=== PATIENT | female | born 1980 | race Caucasian/White ===

== ENCOUNTER → 2017-07-30 | Outpatient (CLI) | payer OTHER ==
[~2017-07-30] MED LIST: E-Z-GAS II EFFERVESCENT PACKET (SODIUM BICARB./CITRIC ACID/SIMETHICONE) As Ordered; ISOVUE-370 76% 100ML VIAL (Q9967) As Ordered
== END ==
LOC: M RADPRO 11:48
DX: N97.9 Female infertility, unspecified (principal)
CPT/HCPCS: 58340

== ENCOUNTER → 2018-01-14 | Outpatient (REF) | payer OTHER | LOC: M SFHCLERA 12:58 | DX: R30.0 Dysuria (principal) ==

== ENCOUNTER 2018-07-10 18:30 | Emergency (ER) | payer OTHER ==
[~2018-07-10] VITALS: Ht 162.6 cm; Wt 59.1 kg
[2018-07-10] MEDS ORDERED: PROG100C PO (18:36)
[2018-07-10] MEDS ORDERED: ASPI81TA85 PO (18:36)
[2018-07-10] MEDS ORDERED: PRENTAB55 PO (18:36)
[2018-07-10] MEDS ORDERED: CRAN400C PO (18:36)
[2018-07-10] MEDS ORDERED: VITA200016 PO (18:36)
[2018-07-10] MEDS ORDERED: MACR100C43 PO (19:49)
[2018-07-10] MEDS ORDERED: PYRI1TAB5 PO (19:49)
[2018-07-10] MEDS ORDERED: NITROFURANTOIN (MACROBID) 100 MG CAP PO ONE (20:00)
[2018-07-10 20:01] VITALS: BP 115/80
== END 2018-07-10 20:06 | disposition home or self-care (01) ==
LOC: M ED 18:30
DX: N39.0 Urinary tract infection, site not specified (principal); R30.0 Dysuria; R35.0 Frequency of micturition

== ENCOUNTER → 2018-08-19 | Outpatient (CLI) | payer OTHER ==
[~2018-08-19] MED LIST changes: +ASPI81TA85 PO; +CRAN400C PO; -E-Z-GAS II EFFERVESCENT PACKET (SODIUM BICARB./CITRIC ACID/SIMETHICONE) As Ordered; -ISOVUE-370 76% 100ML VIAL (Q9967) As Ordered; +MACR100C43 PO; +PRENTAB55 PO; +PROG100C PO; +PYRI1TAB5 PO; +VITA200016 PO
[2018-08-19 09:11] LABS: THYROID STIMULATING HORMONE 1.83 uIU/ML (0.358-3.740)
[2018-08-19 09:45] LABS: PROGESTERONE 25.11 NG/ML
[2018-08-19 10:18] LABS: ESTRADIOL 219.6 PG/ML
== END ==
LOC: M LAB 08:05
PROVIDERS: ATTEND Obstetrics & Gynecology Reproductive Endocrinology
DX: E28.9 Ovarian dysfunction, unspecified (principal)

== ENCOUNTER → 2018-08-26 | Outpatient (CLI) | payer OTHER ==
[2018-08-26 10:54] LABS: PROGESTERONE 4.45 NG/ML
== END ==
LOC: M LAB 09:51
PROVIDERS: ATTEND Obstetrics & Gynecology Reproductive Endocrinology
DX: Z32.00 Encounter for pregnancy test, result unknown (principal)

== ENCOUNTER → 2018-10-24 | Outpatient (CLI) | payer OTHER ==
[2018-10-24 11:38] LABS: HCG, SERUM QUANTITATIVE < 1.0 MIU/ML
[2018-10-24 11:41] LABS: LUTEINIZING HORMONE 3.8 mIU/mL; PROGESTERONE 0.39 NG/ML
--- NOTE | 2018-10-24 11:41 | REP ---
TRANSVAGINAL PELVIC ULTRASOUND, FOLLICLE STUDY: Real-time sonographic evaluation of pelvis performed utilizing transvaginal technique. Uterus measures 7.7 x 3.0 x 4.3 cm. Endometrial thickness is 2 mm. A right-sided fibroid measures 8 x 5 x 6 mm. Nabothian cyst is seen in the region of the cervix. Right ovary measures 4.1 x 2.3 x 3.3 cm with no torsion. Two dominant follicles are seen measuring 10 x 8 and 11 x 6 mm. Multiple other subcentimeter follicles are seen in the right ovary. Left ovary measures 3.3 x 2.0 x 3.4 cm with no torsion. Two dominant follicles are seen measuring 10 x 6 and 10 x 7 mm. Multiple other subcentimeter follicles are seen. Electronically Signed by Lukas Paulson MD 10/24/2018 12:43 P
[2018-10-24 11:42] LABS: ESTRADIOL 40.9 PG/ML; FOLLICLE STIMULATING HORMONE 6.9 mIU/mL
== END ==
LOC: M RAD 10:32
PROVIDERS: ATTEND Obstetrics & Gynecology Reproductive Endocrinology
DX: E28.9 Ovarian dysfunction, unspecified (principal)

== ENCOUNTER → 2018-10-30 | Outpatient (CLI) | payer OTHER ==
[2018-10-30 14:09] LABS: HCG, SERUM QUANTITATIVE < 1.0 MIU/ML; LUTEINIZING HORMONE 3.1 mIU/mL; PROGESTERONE 0.22 NG/ML; THYROID STIMULATING HORMONE 0.709 uIU/ML (0.358-3.740)
[2018-10-30 14:10] LABS: FOLLICLE STIMULATING HORMONE 6.2 mIU/mL
--- NOTE | 2018-10-30 15:16 | REP ---
Clinical: Infertility. Technique: Transvaginal pelvic ultrasound. Findings: Normal anteverted uterus measures 8.1 x 3.4 x 4.9 cm. Endometrial complex measures 7 mm. Trace amount of endocervical fluid is identified. Right anterior intramural fibroid measures 9 mm maximal diameter; right posterior submucosal fibroid measures 1.8 cm maximal diameter. Right ovary measures 3.5 x 2.7 x 3.7 cm with five follicles measuring between 10.0 and 19.3 mm as well as five sub centimeter follicles measuring between 3.2 and 8.2 mm. Left ovary measures 4.3 x 2.1 x 3.6 cm with three follicles measuring between 11.5 and 19.0 mm as well as seven sub centimeter follicles measuring between 4.8 and 7.6 mm. Impression: Follicular study as above. Electronically Signed by Edmar Nava MD 10/30/2018 03:07 P
== END ==
LOC: M RAD 13:06
PROVIDERS: ATTEND Obstetrics & Gynecology Reproductive Endocrinology
DX: E28.9 Ovarian dysfunction, unspecified (principal)

== ENCOUNTER → 2018-11-01 | Outpatient (CLI) | payer OTHER ==
[~2018-11-01] MED LIST changes: +ENDO100S; +ESTR2TAB2; +LOVE1INJ SC; +PREN1TAB14; -PROG100C PO; +PROG1CAP8 PO; +PROG50IN5; +TACR0.5C3
--- NOTE | 2018-11-01 08:22 | REP ---
Transvaginal pelvic sonography: History: Infertility study. Ovarian follicle assessment. Sonographic findings: Overall uterine dimensions are 6.6 x 4.6 x 3.3 cm and endometrial echo is 0.27 cm thick. There are two identifiable myometrial fibroids including a posterior fibroid measuring 1.6 and an anterior fibroid measuring 0.9 cm in greatest diameter. The overall dimensions of the right ovary today are 3.9 x 2.1 x 2.6 cm. There are four follicles over a centimeter in the right ovary measured as follows: 2.2 x 1.6, 1.7 x 1.3, 1.0 x 0.8, and 1.3 x 0.9 cm. In addition, the right ovary contains seven follicles ranging in size from 0.2-0.7 cm. The left ovary measurements are 3.2 x 2.4 x 3.6 cm. There are three follicles over a centimeter in the left ovary measured as follows: 1.2 x 0.8, 2.0 x 1.6, and 2.3 x 1.7 cm. In addition, the left ovary contains 13 follicles ranging in size from 0.2-0.9 cm. Impression: Ovarian follicle assessment as above. Electronically Signed by Robby Mckeon MD 11/01/2018 08:14 A
[2018-11-01 12:22] LABS: ESTRADIOL 482.7 PG/ML; LUTEINIZING HORMONE 1.9 mIU/mL; PROGESTERONE 0.23 NG/ML
== END ==
LOC: M RAD 07:30
PROVIDERS: ATTEND Obstetrics & Gynecology Reproductive Endocrinology
DX: E28.9 Ovarian dysfunction, unspecified (principal); D25.9 Leiomyoma of uterus, unspecified

== ENCOUNTER 2018-11-17 15:30 | Emergency (ER) | payer OTHER ==
[~2018-11-17] VITALS: Ht 162.6 cm; Wt 61.4 kg
[~2018-11-17 15:30] MED LIST changes: -ENDO100S; -ESTR2TAB2; -LOVE1INJ SC; -PREN1TAB14; +PROG100C PO; -PROG1CAP8 PO; -PROG50IN5; -TACR0.5C3
[2018-11-17] MEDS ORDERED: PREN1TAB14 (15:40)
[2018-11-17] MEDS ORDERED: PROG50IN5 (15:40)
[2018-11-17] MEDS ORDERED: ENDO100S (15:40)
[2018-11-17] MEDS ORDERED: LOVE1INJ SC (15:40)
[2018-11-17] MEDS ORDERED: ESTR2TAB2 (15:40)
[2018-11-17] MEDS ORDERED: TACR0.5C3 (15:40)
[2018-11-17 17:06] VITALS: BP 131/79
== END 2018-11-17 17:07 | disposition home or self-care (01) ==
LOC: M ED 15:30
DX: R30.0 Dysuria (principal); Z32.01 Encounter for pregnancy test, result positive; Z79.82 Long term (current) use of aspirin; Z79.890 Hormone replacement therapy; Z79.899 Other long term (current) drug therapy

== ENCOUNTER → 2018-11-18 | Outpatient (CLI) | payer OTHER ==
[~2018-11-18] MED LIST changes: +ENDO100S; +ESTR2TAB2; +LOVE1INJ SC; +PREN1TAB14; +PROG50IN5; +TACR0.5C3
[2018-11-18 10:15] LABS: PROGESTERONE 127.48 NG/ML
== END ==
LOC: M LAB 08:00
PROVIDERS: ATTEND Obstetrics & Gynecology Reproductive Endocrinology
DX: E28.9 Ovarian dysfunction, unspecified (principal)

== ENCOUNTER → 2018-11-20 | Outpatient (CLI) | payer OTHER ==
[2018-11-20 08:56] LABS: THYROID STIMULATING HORMONE 1.13 uIU/ML (0.358-3.740)
[2018-11-20 10:57] LABS: ESTRADIOL 1765.3 PG/ML
[2018-11-20 11:20] LABS: PROGESTERONE 87.56 NG/ML
== END ==
LOC: M LAB 07:45
PROVIDERS: ATTEND Obstetrics & Gynecology Reproductive Endocrinology
DX: O09.00 Supervision of pregnancy with history of infertility, unspecified trimester (principal); Z3A.00 Weeks of gestation of pregnancy not specified

== ENCOUNTER → 2018-11-27 | Outpatient (CLI) | payer OTHER ==
[2018-11-27 08:50] LABS: THYROID STIMULATING HORMONE 1.58 uIU/ML (0.358-3.740)
--- NOTE | 2018-11-27 09:24 | REP ---
Clinical: Positive test. History of infertility. Technique: Transabdominal and transvaginal first trimester obstetrical ultrasound with color evaluation. Findings: Anteverted uterus measures 9.1 x 4.5 x 5.8 cm and includes posterior fibroid measuring 2.0 x 1.1 x 1.9 cm and anterior right fibroid measuring 1.2 x 1.2 x 1.0 cm. A gestational sac with yolk sac is identified. Mean sac diameter of 7.7 mm corresponds to 5 weeks 4 days gestational age. A small hypoechoic area adjacent to the gestational sac measuring 15 x 3 x 11 mm may represent small subchorionic hemorrhage. Bilateral ovaries are normal in vascularity without evidence for torsion. Right ovary measures 4.7 x 3.7 x 4.6 cm (RI 0.62) and includes 3.2 cm simple cyst and 2.2 cm complex cyst. Left ovary measures 4.1 x 2.5 x 4.2 cm (RI 0.61) and includes 1.4 cm complex cyst and 2.7 cm complex cyst. Small amount of free fluid noted in the pelvis. Impression: 1. Uterus includes two fibroids as described above. 2. Intrauterine gestational sac with yolk sac but no pole identified. Differential diagnosis includes early , blighted ovum, and less likely ectopic cannot be excluded. Correlation and follow-up with serial HCG levels and reevaluation by ultrasound may be warranted. 3. A small subchorionic hemorrhage adjacent to the gestational sac cannot be excluded. 4. Ovaries demonstrate bilateral simple and complex cysts without evidence for torsion. Electronically Signed by Edmar Nava MD 11/27/2018 09:16 A
[2018-11-27 10:25] LABS: ESTRADIOL 929.3 PG/ML
[2018-11-27 11:03] LABS: PROGESTERONE 56.69 NG/ML
== END ==
LOC: M RAD 07:37
PROVIDERS: ATTEND Obstetrics & Gynecology Reproductive Endocrinology
DX: N83.201 Unspecified ovarian cyst, right side (principal); N83.202 Unspecified ovarian cyst, left side

== ENCOUNTER → 2018-12-04 | Outpatient (CLI) | payer OTHER ==
[~2018-12-04] MED LIST changes: -PROG100C PO; +PROG1CAP8 PO
--- NOTE | 2018-12-04 08:28 | REP ---
Clinical: Dating viability. Technique: Transabdominal first trimester obstetrical channel with color Doppler evaluation. Findings: Single live intrauterine is appreciated. Gestational sac with yolk sac and pole noted. CRL of 3 mm corresponds to 5-week 6 days gestational age with estimated date of delivery 07/31/2019. heart rate equals 109 beats per minute. A small subchorionic hemorrhage is appreciated to the left of the gestational sac measuring 18 x 10 x 21 mm. Anterior intramural fibroid cannot be excluded measuring approximately 12 x 10 x 14 mm. The right ovary measures 5.2 x 3.6 x 4.4 cm and includes 3.5 x 3.3 x 3.5 cm cyst, 1.8 x 1.5 x 1.7 cm cyst. The left ovary measures 5.0 x 3.0 x 3.3 cm and includes 2.4 x 2.3 x 2.0 cm complex hemorrhagic cyst and 8 x 17 x 11 mm simple cyst. Impression: 1. Single live early intrauterine at 5 weeks 6 days gestational age. Complete anatomical assessment should be performed at 19-20 weeks. Small subchorionic hemorrhage identified. 2. Anterior intramural fibroid suspected measuring 1.2 x 1.0 x 1.4 cm. 3. Ovaries include multiple simple/complex cysts. Electronically Signed by Edmar Nava MD 12/04/2018 08:19 A
[2018-12-04 08:43] LABS: THYROID STIMULATING HORMONE 1.4 uIU/ML (0.358-3.740)
[2018-12-04 09:52] LABS: ESTRADIOL 2445.3 PG/ML
[2018-12-04 12:34] LABS: PROGESTERONE 75.6 NG/ML
== END ==
LOC: M RAD 07:09
PROVIDERS: ATTEND Obstetrics & Gynecology Reproductive Endocrinology
DX: Z32.01 Encounter for pregnancy test, result positive (principal); Z3A.01 Less than 8 weeks gestation of pregnancy

== ENCOUNTER → 2019-02-16 | Outpatient (REF) | payer OTHER ==
[2019-02-16 22:43] LABS: CHLAMYDIA DNA AMPLIFICATION NEGATIVE (NEGATIVE); GC DNA AMPLIFICATION NEGATIVE (NEGATIVE)
== END ==
LOC: EDBD → MERGE 13:32 → M SFHCLERA 13:32
PROVIDERS: ATTEND Nurse Practitioner Family
DX: R30.0 Dysuria (principal)
CPT/HCPCS: 81002; 87086; 87661; G0463

== ENCOUNTER → 2019-06-19 | Outpatient (CLI) | payer OTHER ==
--- NOTE | 2019-06-20 02:24 | REP ---
Clinical: Anatomical evaluation. Comparison: 12/04/2018 . Findings: Examination demonstrates a single live intrauterine in cephalic presentation. motion is identified by technologist. Placenta is noted right lateral/anterior and grade I I without evidence for placenta previa or abruption. Amniotic fluid volume is normal. Cervix measures 2.7 cm in length and appears closed. Nuchal cord noted. Gestational age by LMP 34 weeks 0 days with DESTIN 07/31/2019 . Gestational age by current measurements 34 weeks 1 day with DESTIN 07/30/2019 . FHR equals 142 beats per minute. BPD 8.7 cm 35 weeks 0 days HC 31.0 cm 34 weeks 4 days AC 29.6 cm 33 weeks 4 days FL 6.6 cm 34 weeks 0 days HL 5.8 cm 33 weeks 6 days HC/AC ratio 1.05 Estimated weight 2312 grams ( 45th percentile). Amniotic fluid index: 12.8 cm Umbilical cord SD ratio: 2.01 Impression: 1. Single live advanced gestation in cephalic presentation demonstrating appropriate interval growth. 2. Nuchal cord. Electronically Signed by Edmar Nava MD 06/20/2019 02:16 A
== END ==
LOC: M RAD 16:01
PROVIDERS: ATTEND Registered Nurse Maternal Newborn
DX: Z36.89 Encounter for other specified antenatal screening (principal); Z3A.34 34 weeks gestation of pregnancy

== ENCOUNTER 2019-07-17 13:30 | Inpatient (IN) | payer OTHER ==
[~2019-07-17] VITALS: Ht 162.6 cm; Wt 74.5 kg
[2019-07-17] VITALS (11 sets, daily range): BP systolic 114–153; BP diastolic 65–95
[2019-07-17] MEDS ORDERED: LR 1,000 ML IV SCH (14:49)
[2019-07-17 15:29] LABS: HEMOGLOBIN 12.9 g/dl (12.0-15.5); MEAN CORPUSCULAR HEMOGLOBIN 31.6 pg (27.0-33.0); MEAN CORPUSCULAR HGB CONC 35.8 g/dl (32.0-36.5); MEAN CORPUSCULAR VOLUME 88.2 fl (80.0-96.0); PLATELET COUNT, AUTOMATED 171 10^3/uL (150-450); RED BLOOD COUNT 4.08 10^6/uL (4.00-5.40); WHITE BLOOD COUNT 8.7 10^3/uL (4.0-10.0)
--- NOTE | 2019-07-17 15:53 | HPEPDOC ---
Obstetrical History & Physical General Date of Admission Jul 17, 2019 at 13:30 History of Present Illness Patient is a 39 yo @38+3wks presents to l&d from clinic after confirmed ROM workup done by MAJ Eitan CNM. Exam in clinic significant for positive pooling and ferning. patient report she has been having intermitted clear vaginal discharge for the last week or so. Denies gush of fluid. Denies feeling contractions. 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 Past Medical History Medical History denies Surgical History: Other (knee surgery, laparoscopic salpingostomy and d&c for ectopic ) Family History Significant Family History: No pertinent family hx Social History Marital Status: Family situation: Spouse/partner home * Smoker: non-smoker Alcohol: Denies Drugs: denies Allergies Coded Allergies: No Known Allergies (Unverified , 07/10/18) Medications Scheduled Cholecalciferol (Vitamin D3) (Vitamin D3) 2,000 Unit Cap, 1 CAP PO DAILY Miscellaneous Medications Vits96/Iron Fum/Folic ( Tablet) 1 Each Tablet Physical Examination Physical Examination GENERAL: Alert and oriented times three. ABDOMEN: Gravid and non-tender to touch. FETUS: Is vertex (VTX) by sterile vaginal examination (SVE), fetus is vertex (VTX) by Vipul. HEART RATE: Regular rate and rhythm. LUNGS: Clear to auscultation (CTA). EXTREMITIES: No edema/erythema/tenderness EFW: 3400gm Laboratory Data 24H LABS Laboratory Tests 2 07/17/19 13:50: Serology Scanned Report Hepatitis B Testing Pertinent Laboratoy Data Blood Type: O+ RBC Antibody Screen: Negative HIV: Negative Hepatitis B: Unknown Rapid Plasma Reagin: Nonreactive Rubella: Nonreactive Chlamydia/Gonorrhea: Negative Group B Streptococcus: Negative Anatomy Ultrasound Placenta Location: Anterior Normal Anatomy: Yes Placenta Previa: No Vaginal Examination Dilation: 1cm Effacement: 50% Station: -2 Cervical Consistency: Soft Cervical Position: Posterior Presentation: Cephalic presentation Assessment Heart Rate (FHR): 135 Variability: Moderate Accelerations: Positive Decelerations: None Tocometer Contractions: No Assessment/Plan Assessment Patient is 39 yo @ 38+3wks gestation with PROM. not in labor. Discussed with patient recommendation for induction of labor at this time. Risk of infection requiring IV antibiotics, bleeding needing blood transfusion and associated risks, emergent delivery, use of forceps or vacuum for operative vaginal delivery, need for internal monitoring, episiotomy. Plan Admit and orient. Proposal Lead Writer and consent. Diet: clear Group B Streptococcus (GBS) [negative]. Labs and intravenous (IV) per unit protocol. estrada bulb and misoprostol for cervical ripening, pit for continue induction as appropriate. anesthesia consult pelvis adequate for trial of labor. DO JULIO C Matos LUAT N. DO Jul 17, 2019 15:49
[2019-07-17] MEDS: miSOPROStol 25 MCG 1/4 TAB (S0191) SL SCH ×2 (16:00→21:51)
[2019-07-17] MEDS ORDERED: PILL CUTTER 1 EACH XX PRN (22:45)
[2019-07-17] MEDS ORDERED: FAMOTIDINE 20 MG TAB PO ONE (23:15)
[2019-07-18] VITALS (21 sets, daily range): BP systolic 107–153; BP diastolic 57–95
[2019-07-18] MEDS ORDERED: NALBUPHINE HCL 10 MG/ML AMP (J2300) IV ONE (05:00)
[2019-07-18] MEDS ORDERED: PROMETHAZINE INJ 25 MG/ML VIAL (J2550) IV ONE (05:00)
[2019-07-18] MEDS ORDERED: NALBUPHINE HCL 10 MG/ML AMP (J2300) IM ONE (05:00)
[2019-07-18] MEDS ORDERED: OXYTOCIN DRIP 30 UNITS in IV 1 EA IV SCH ×2 (06:30→15:00)
[2019-07-18] MEDS: FAMOTIDINE 20 MG TAB PO SCH (09:00)
--- NOTE | 2019-07-18 13:47 | IPNPDOC ---
Text Note Date of Service The patient was seen on 07/18/19. NOTE Patient having worsening pain. Curled up and not moving from contractions but refused epidural. x1 dose stadol. SVE 10/100/+2/. Will begin pushing. Fetus reassuring. VS,Fishbone, I+O VS, Fishbone, I+O Laboratory Tests 07/17/19 15:14 Vital Signs Date Time Temp Pulse Resp B/P (MAP) Pulse Ox O2 Delivery O2 Flow Rate FiO2 07/18/19 08:50 98.2 77 18 125/81 (96) Dinora Olivo MD Jul 18, 2019 13:47
[2019-07-18] MEDS ORDERED: ONDANSETRON 4MG/2ML VIAL (J2405) IV SCH (15:00)
[2019-07-18] MEDS ORDERED: RHOGAM 300 MCG (1500 IU) INJ (J2790) IM SCH (15:00)
[2019-07-18] MEDS ORDERED: ACETAMINOPHEN 500 MG TAB PO PRN (15:00)
[2019-07-18] MEDS ORDERED: MEASLES,MUMPS,RUBELLA VACCINE INJ (MMR-II) (90707) SC SCH (15:00)
[2019-07-18] MEDS ORDERED: DIBUCAINE 1% OINTMENT 30GM TOP PRN (15:00)
[2019-07-18] MEDS ORDERED: MOM 30ML SUSPENSION UDC PO PRN (15:00)
[2019-07-18] MEDS ORDERED: SIMETHICONE 80 MG CHEW TAB PO PRN (15:00)
[2019-07-18] MEDS ORDERED: METHYLERGONOVINE MALEATE 0.2 MG TAB PO PRN (15:00)
[2019-07-18] MEDS ORDERED: CALCIUM CARBONATE 500 MG CHEW U/D PO PRN (15:00)
[2019-07-18] MEDS ORDERED: LIDOCAINE 1% MDV 20ML VIAL INFIL ONE (15:00)
[2019-07-18] MEDS: IBUPROFEN 600 MG TAB PO PRN ×2 (15:02→20:47)
--- NOTE | 2019-07-18 15:57 | DNPDOC ---
[facility] Delivery Note Delivery Note DATE OF DELIVERY: 07/18/2019 PREDELIVERY DIAGNOSIS:. Term , rupture of membranes, 38.3 weeks' gestation and labor. POST DELIVERY DIAGNOSIS: Delivered. PROCEDURE: Spontaneous vaginal delivery. LODGE ATTENDANT: Dr. Olivo ANESTHESIA: None. ESTIMATED BLOOD LOSS:. 250 mL. FINDINGS: 5 pound 7 ounce 2460 g boy , Score, 9/9, nuchal cord times x2, loose. DELIVERY SUMMARY: Patient is a 39-year-old 4 now para 1 who was admitted to labor and delivery for active labor for 20hours. Patient SROM clear around 14:00 07/17/2019. Baby boy head was delivered without difficulty over intact perineum in. JENAE position at 1401. The nose and mouth were bulb s uctioned. x2, loose nuchal cord was noted. The shoulders were then delivered without difficulty. Infant was handed on mother's belly. Pitocin bolus was started. Cord was then clamped x2 and cut after it stopped pulsating. Perineum was inspected and found to have a right labial small laceration. This was repaired with 1% lidocaine 3cc with 2-0 chromic. The placenta was then delivered at 1413 spontaneously intact. Cord had a 3 vessel cord. EBL was 250mL. The vagina and perineum were reinspected and no further lacerations were found and hemostasis was good. Fundus was firm. Patient tolerated delivery well. Dinora Olivo MD Jul 18, 2019 15:57
[2019-07-18] MEDS ORDERED: ONDANSETRON 4MG/2ML VIAL (J2405) IV PRN (17:45)
[2019-07-18] MEDS: DOCUSATE SODIUM 100 MG CAP PO SCH (19:54)
[2019-07-19 06:00] VITALS: BP 116/64
--- NOTE | 2019-07-19 07:48 | IPNPDOC ---
Progress Note Date of Service: Jul 19, 2019 Progress Note SUBJECT: Patient is a 39-year-old 1 now Para 1 status post uncomplicated spontaneous vaginal delivery with post vaginal laceration and repair. doing well day # 1. She has been ambulating, voiding spontaneously without issue and tolerating regular diet. Breast feeding without issue. Reports lochia is like a normal period. Patient is ambulating well. Reports some cramping with . Denies any pain. Voiding and stooling without difficulty. OBJECTIVE: VITAL SIGNS: Within normal limits, afebrile. Alert and oriented times three. Breast nontender and without erythema Breath sounds clear to auscultation. Heart rate: Regular rate and rhythm, no murmurs, rubs or gallops. Abdomen: Fundus firm at U-2. Soft, NTTP. Minimal lochia. ASSESSMENT: Patient is a 39-year-old 1 now Para 1 status post uncomplicated spontaneous vaginal delivery PPD. Doing well. Vitals within normal limits, afebrile, hemodynamically stable with no evidence of infection. PLAN: 1. Discharge tomorrow. 2. Tylenol and Motrin for pain. 3. Encourage breast feeding and ambulation. 4. Routine PP visit in 6 weeks in clinic. VS, I&O, 24H, Fishbone Vital Signs/I&O Vital Signs Date Time Temp Pulse Resp B/P (MAP) Pulse Ox O2 Delivery O2 Flow Rate FiO2 07/19/19 06:00 98.6 83 16 116/64 (81) 96 Room Air I&O- Last 24 Hours up to 6 AM 07/19/19 06:00 Output Total 650 ml Balance -650 ml Dinora Olivo MD Jul 19, 2019 07:48
[2019-07-19] MEDS: FAMOTIDINE 20 MG TAB PO SCH (08:29)
[2019-07-19] MEDS: PRENATAL VITAMINS CHEWABLE TABLET PO SCH (08:29)
[2019-07-19] MEDS: DOCUSATE SODIUM 100 MG CAP PO SCH ×2 (08:29→21:07)
[2019-07-19] MEDS: IBUPROFEN 800 MG TAB PO PRN ×2 (14:18→23:58)
[2019-07-19 18:00] VITALS: BP 120/60
[2019-07-20 06:00] VITALS: BP 114/71
[2019-07-20] MEDS: FAMOTIDINE 20 MG TAB PO SCH (09:00)
[2019-07-20] MEDS: DOCUSATE SODIUM 100 MG CAP PO SCH ×2 (09:35→21:19)
[2019-07-20] MEDS: PRENATAL VITAMINS CHEWABLE TABLET PO SCH (09:35)
--- NOTE | 2019-07-20 11:48 | IPNPDOC ---
Progress Note Date of Service: Jul 20, 2019 Day#: 2 Progress Note PPD 2 SUBJECT: Jamia is a 39yo [id number] doing well on PPD 2 s/p uncomplicated on 07/18 at 1401 after presenting w/PROM at 38w3d. She has been ambulating, voiding spontaneously without issue and tolerating regular diet. Breast and bottle feeding without issue, just nipple soreness. Reports lochia is like a normal period. No f/c/n/v/CP/SOB. Baby has borderline bili and weight loss, so likely will need to stay until tomorrow. OBJECTIVE: VITAL SIGNS: Within normal limits, afebrile. Alert and oriented times three. Abdomen: Fundus firm at U-2. Soft, NTTP. Extremities: trace edema of BLE, no pain with palpation of calves ASSESSMENT: Jamia is a 39yo [id number] doing well on PPD 2 s/p uncomplicated on 07/18 at 1401 after presenting w/PROM at 38w3d. Vitals within normal limits, afebrile, hemodynamically stable with no evidence of infection. PLAN: 1. Routine care 2. Tylenol and Motrin for pain. 3. Encourage breast feeding and ambulation. 4. Undecided on contraception 5. Likely discharge home tomorrow (unless baby can be discharged home today, then the pair can go home today) Dr. Yamel Aguilar MD VS, I&O, 24H, Fishbone Vital Signs/I&O Vital Signs Date Time Temp Pulse Resp B/P (MAP) Pulse Ox O2 Delivery O2 Flow Rate FiO2 07/20/19 06:00 98.7 76 17 114/71 (85) Room Air 07/19/19 18:00 97 Yamel Aguilar MD Jul 20, 2019 11:48
[2019-07-20 18:00] VITALS: BP 107/61
[2019-07-21 06:00] VITALS: BP 136/81
--- NOTE | 2019-07-21 08:01 | IPNPDOC ---
Progress Note Date of Service: Jul 21, 2019 Day#: 3 Progress Note PPD 3 SUBJECT: Jamia is a 39yo [id number] doing well on PPD 3 s/p uncomplicated on 07/18 at 1401 after presenting w/PROM at 38w3d. She has been ambulating, voiding spontaneously without issue and tolerating regular diet. Breast and bottle feeding without issue. Reports lochia is like a normal period. No f/c/n/v/CP/SOB. Baby has been under bili light. OBJECTIVE: VITAL SIGNS: Within normal limits, afebrile. Alert and oriented times three. Abdomen: Fundus firm at U-2. Soft, NTTP. Extremities: trace edema of BLE, no pain with palpation of calves ASSESSMENT: Jamia is a 39yo [id number] doing well on PPD 3 s/p uncomplicated on 07/18 at 1401 after presenting w/PROM at 38w3d. Vitals within normal limits, afebrile, hemodynamically stable with no evidence of infection. PLAN: 1. Discharge to home today 2. Tylenol and Motrin for pain. 3. Encourage breast feeding and ambulation. 4. Undecided on contraception, will discuss at 6 week visit (she know s to call to schedule) 5. Return precautions discussed 6. Vaginal rest, no heavy lifting for [address] Yamel Aguilar MD VS, I&O, 24H, Fishbone Vital Signs/I&O Vital Signs Date Time Temp Pulse Resp B/P (MAP) Pulse Ox O2 Delivery O2 Flow Rate FiO2 07/21/19 06:00 98.0 76 18 136/81 (99) Room Air 07/20/19 18:00 95 Yamel Aguilar MD Jul 21, 2019 08:01
[2019-07-21] MEDS ORDERED: IBUP80TA PO (08:02)
[2019-07-21] MEDS ORDERED: ACET-683 PO (08:02)
--- NOTE | 2019-07-21 08:07 | DS.PDOC ---
Discharge Summary General Date of Admission Jul 17, 2019 at 13:30 Date of Discharge Jul 21, 2019 Attending Physician: Yamel Aguilar MD Discharge Summary PROCEDURES PERFORMED DURING STAY: spontaneous vaginal delivery ADMITTING DIAGNOSES: 1. Pre-labor rupture of membranes at term DISCHARGE DIAGNOSES: 1. Pre-labor rupture of membranes at term, delivered COMPLICATIONS/CHIEF COMPLAINT: ROM. HISTORY OF PRESENT ILLNESS/HOSPITAL COURSE: Jamia is a 39yo [id number] doing well on PPD 3 s/p uncomplicated on 07/18 at 1401 after presenting w/PROM at 38w3d. She had a benign course. At time of discharge vitals were within normal limits, afebrile, hemodynamically stable with no evidence of infection. DISCHARGE MEDICATIONS: Please see below. ALLERGIES: Please see below. PHYSICAL EXAMINATION ON DISCHARGE: VITAL SIGNS: Within normal limits, afebrile. Alert and oriented times three. Abdomen: Fundus firm at U-2. Soft, NTTP. Extremities: trace edema of BLE, no pain with palpation of calves LABORATORY DATA: Please see below. DIET: regular DISPOSITION: home DISCHARGE PLAN/INSTRUCTIONS: 1. Discharge to home today 2. Tylenol and Motrin for pain. 3. Encourage breast feeding and ambulation. 4. Undecided on contraception, will discuss at 6 week visit (she kn ows to call to schedule) 5. Return precautions discussed 6. Vaginal rest, no heavy lifting for 6 weeks DISCHARGE CONDITION: Stable TIME SPENT ON DISCHARGE: Greater than [address] Yamel Aguilar MD Vital Signs/I&Os Vital Signs Date Time Temp Pulse Resp B/P (MAP) Pulse Ox O2 Delivery O2 Flow Rate FiO2 07/21/19 06:00 98.0 76 18 136/81 (99) Room Air 07/20/19 18:00 95 Discharge Medications Scheduled Cholecalciferol (Vitamin D3) (Vitamin D3) 2,000 Unit Cap, 1 CAP PO DAILY, (Reported) Scheduled PRN Acetaminophen (Acetaminophen) 500 Mg Tablet, 1,000 MG PO TID PRN for headache or fever Ibuprofen (Ibuprofen) 800 Mg Tablet, 800 MG PO Q8HP PRN for PAIN LEVEL 6-10 Miscellaneous Medications Vits96/Iron Fum/Folic ( Tablet) 1 Each Tablet, (Reported) Allergies Coded Allergies: No Known Allergies (Unverified , 07/10/18) Yamel Aguilar MD Jul 21, 2019 08:07
[2019-07-21] MEDS: PRENATAL VITAMINS CHEWABLE TABLET PO SCH (08:21)
[2019-07-21] MEDS: DOCUSATE SODIUM 100 MG CAP PO SCH (08:21)
[2019-07-21] MEDS: FAMOTIDINE 20 MG TAB PO SCH (08:21)
== END 2019-07-21 12:30 | disposition home or self-care (01) | DRG 807 ==
LOC: M LDI 13:30 → M OBS 07-18 16:30
PROVIDERS: ADMIT Obstetrics & Gynecology; ATTEND Obstetrics & Gynecology
PROC: 10E0XZZ Delivery of Products of Conception, External Approach (ICD-10-PCS; principal; 2019-07-18)
PROC: 0HQ9XZZ Repair Perineum Skin, External Approach (ICD-10-PCS; 2019-07-18)
DX: O42.12 Full-term premature rupture of membranes, onset of labor more than 24 hours following rupture (principal); Z37.0 Single live birth; Z3A.38 38 weeks gestation of pregnancy; O69.81X0 Labor and delivery complicated by cord around neck, without compression, not applicable or unspecified; O70.0 First degree perineal laceration during delivery

== ENCOUNTER → 2020-05-27 | Outpatient (REF) | payer OTHER ==
[~2020-05-27] MED LIST changes: +ACET-683 PO; -ASPI81TA85 PO; +ASPI81TA86 PO; +IBUP80TA PO
== END ==
LOC: M LAB REF 13:45
PROVIDERS: ATTEND Physician Assistant
DX: Z11.59 Encounter for screening for other viral diseases (principal)

== ENCOUNTER → 2021-03-08 | Outpatient (CLI) | payer OTHER ==
[2021-03-08 11:39] LABS: BASO % 0.4 % (0.0-1.0); EOS # 0.1 10^3/uL (0.0-0.5); EOS % 1.6 % (0.0-3.0); HEMATOCRIT 43.7 % (36.0-47.0); HEMOGLOBIN 14.8 g/dl (12.0-15.5); LYMPH # 1.1 10^3/uL (1.5-5.0); LYMPH % 22.1 % (24.0-44.0); MEAN CORPUSCULAR HEMOGLOBIN 30.3 pg (27.0-33.0); MEAN CORPUSCULAR HGB CONC 33.9 g/dl (32.0-36.5); MEAN CORPUSCULAR VOLUME 89.4 fl (80.0-96.0); MONO # 0.4 10^3/uL (0.0-0.8); MONO % 7.5 % (2.0-8.0); NEUTROPHILS # 3.4 10^3/uL (1.5-8.5); PLATELET COUNT, AUTOMATED 188 10^3/uL (150-450); RED BLOOD COUNT 4.89 10^6/uL (4.00-5.40); WHITE BLOOD COUNT 4.9 10^3/uL (4.0-10.0)
[2021-03-08 12:06] LABS: HEMOGLOBIN A1c 4.9 %
[2021-03-08 17:24] LABS: ALBUMIN 3.9 GM/DL (3.2-5.2); ALT/SGPT 32 U/L (12-78); BILIRUBIN,TOTAL 0.7 MG/DL (0.2-1.0); BLOOD UREA NITROGEN 14 MG/DL (7-18); CALCIUM LEVEL 9.4 MG/DL (8.5-10.1); CARBON DIOXIDE LEVEL 29 MEQ/L (21-32); CHLORIDE LEVEL 107 MEQ/L (98-107); CREATININE FOR GFR 0.87 MG/DL (0.55-1.30); GLOMERULAR FILTRATION RATE > 60.0 (>60); GLUCOSE, FASTING 75 MG/DL (70-100); HCG, SERUM QUANTITATIVE < 1.0 MIU/ML; POTASSIUM SERUM 4.2 MEQ/L (3.5-5.1); SODIUM LEVEL 139 MEQ/L (136-145); THYROID STIMULATING HORMONE 0.729 uIU/ML (0.358-3.740); TOTAL 25(OH) VITAMIN D 42.5 NG/ML (30.0-100.0); TOTAL PROTEIN 6.5 GM/DL (6.4-8.2)
[2021-03-08 17:25] LABS: PROLACTIN 10.3 NG/ML; TESTOSTERONE 26 NG/DL (14-76)
[2021-03-08 17:37] LABS: HEPATITIS B SURFACE ANTIGEN NEGATIVE (NEGATIVE)
[2021-03-08 18:03] LABS: HEPATITIS C VIRUS ABY INDEX 0.1 INDEX (<0.8)
[2021-03-08 18:05] LABS: HIV 1&2 SCREEN CENTAUR NEGATIVE (NEGATIVE)
== END ==
LOC: M LAB 09:48
PROVIDERS: ATTEND Obstetrics & Gynecology Reproductive Endocrinology
DX: Z31.41 Encounter for fertility testing (principal)
CPT/HCPCS: 36415; 74740; 80053; 82306; 82627; 83036; 83516; 84146; 84403; 84443; 84702; 85025; 86762; 86780; 86787; 86803; 86850; 86900; 86901; 87340; 87389; Q9967

== ENCOUNTER → 2021-03-08 | Outpatient (CLI) | payer OTHER ==
[~2021-03-08] MED LIST changes: +ISOVUE-370 76% 100ML VIAL As Ordered ONE
--- NOTE | 2021-03-08 12:50 | REP ---
INDICATION: INFERTILITY-LAB FIRST. COMPARISON: Normal wall comparison hysterosalpingography is from July 30, 2017. TECHNIQUE: The endometrium is cannulated by the attending supply room clerk. Fluoroscopic guidance is provided during contrast injection and intermittent spot filming is acquired. 0.9 minutes of fluoroscopy time is utilized. FINDINGS: Sequential spot filming demonstrates opacification of a normally shaped endometrial cavity. Despite sustained and painful distension from the injection, neither fallopian tube was opacified on today's study. 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 IMPRESSION: Findings consistent with bilateral tubal occlusion. <Electronically signed by London Mckeon > 03/08/21 1244
== END ==
LOC: M RADPRO 09:50
PROVIDERS: ATTEND Obstetrics & Gynecology
DX: N97.9 Female infertility, unspecified (principal)

== ENCOUNTER 2021-08-08 10:29 | Emergency (ER) | payer OTHER ==
[~2021-08-08] VITALS: Ht 162.6 cm; Wt 64.3 kg
[~2021-08-08 10:29] MED LIST changes: -ESTR2TAB2; +ESTR2TAB3; -ISOVUE-370 76% 100ML VIAL As Ordered ONE
[2021-08-08 12:25] LABS: BASO % 0.2 % (0.0-1.0); EOS # 0.1 10^3/uL (0.0-0.5); EOS % 1.6 % (0.0-3.0); HEMATOCRIT 42.3 % (36.0-47.0); HEMOGLOBIN 14.4 g/dl (12.0-15.5); LYMPH # 1.1 10^3/uL (1.5-5.0); LYMPH % 20.8 % (24.0-44.0); MEAN CORPUSCULAR HEMOGLOBIN 29.7 pg (27.0-33.0); MEAN CORPUSCULAR VOLUME 87.2 fl (80.0-96.0); MONO # 0.4 10^3/uL (0.0-0.8); NEUTROPHILS # 3.6 10^3/uL (1.5-8.5); NEUTROPHILS % 69.2 % (36.0-66.0); PLATELET COUNT, AUTOMATED 172 10^3/uL (150-450); RED BLOOD COUNT 4.85 10^6/uL (4.00-5.40); WHITE BLOOD COUNT 5.1 10^3/uL (4.0-10.0)
[2021-08-08 12:55] LABS: CK-MB VALUE MASS < 1.0 NG/ML (<3.6); CPK CREATINE PHOSPHOKINASE 71 U/L (26-192); MB/CK RELATIVE INDEX 1.41 (< OR =4)
[2021-08-08 13:23] LABS: HCG, SERUM QUALITATIVE NEGATIVE (NEGATIVE)
[2021-08-08 13:26] LABS: ALBUMIN 3.6 GM/DL (3.2-5.2); ALT/SGPT 30 U/L (12-78); BILIRUBIN,DIRECT 0.1 MG/DL (0.0-0.2); BILIRUBIN,TOTAL 0.4 MG/DL (0.2-1.0); BLOOD UREA NITROGEN 14 MG/DL (7-18); CARBON DIOXIDE LEVEL 28 MEQ/L (21-32); CHLORIDE LEVEL 106 MEQ/L (98-107); CREATININE FOR GFR 0.75 MG/DL (0.55-1.30); GLOMERULAR FILTRATION RATE > 60.0 (>60); GLUCOSE, FASTING 88 MG/DL (70-100); LIPASE 55 U/L (73-393); NT-PRO BNP 72 PG/ML (<125); SODIUM LEVEL 140 MEQ/L (136-145)
[2021-08-08] MEDS ORDERED: ISOVUE-370 76% 100ML VIAL As Ordered ONE (13:38)
[2021-08-08 15:05] VITALS: BP 117/73
== END 2021-08-08 15:10 | disposition home or self-care (01) ==
LOC: M ED 10:29
DX: R07.89 Other chest pain (principal); R06.00 Dyspnea, unspecified
CPT/HCPCS: 36415; 71275; 80048; 80076; 82550; 82553; 83690; 83880; 84443; 84484; 84703; 85025; 93005; 94760; 99284; Q9967

== ENCOUNTER → 2022-01-15 | Outpatient (REF) | payer OTHER | LOC: M WUC 20:05 | PROVIDERS: ATTEND Physician Assistant | DX: N39.0 Urinary tract infection, site not specified (principal) ==

== ENCOUNTER → 2022-08-29 | Outpatient (CLI) | payer OTHER | LOC: M WHC 10:13 | PROVIDERS: ATTEND Physician Assistant | DX: Z12.31 Encounter for screening mammogram for malignant neoplasm of breast (principal) ==

== ENCOUNTER 2023-02-09 09:59 | Day surgery (SDC) | payer OTHER ==
[~2023-02-09] VITALS: Ht 160 cm; Wt 61.9 kg
[~2023-02-09 09:59] MED LIST changes: +GNP250TA9 PO; +UNRESOLVED CLARIFICATION ENTRY XX SCH; +VITA100093 PO
[2023-02-09] MEDS ORDERED: LR 1,000 ML IV SCH ×2 (10:35→13:05)
[2023-02-09] MEDS ORDERED: MIDAZOLAM INJ 2MG/2ML VIAL As Ordered ONE (11:42)
[2023-02-09] MEDS ORDERED: fentaNYL 100 MCG/2 ML INJECTION As Ordered ONE ×2 (11:43→11:44)
[2023-02-09] MEDS ORDERED: LIDOCAINE 2% 100MG/5ML SDV (FOR ANES.) As Ordered ONE (11:46)
[2023-02-09] MEDS ORDERED: ONDANSETRON 4MG 2ML VIAL As Ordered ONE (11:46)
[2023-02-09] MEDS ORDERED: propofoL 200 MG/20 ML VIAL As Ordered ONE (11:46)
[2023-02-09] MEDS ORDERED: METOCLOPRAMIDE INJ 10MG/2ML VIAL As Ordered ONE (11:46)
[2023-02-09] MEDS ORDERED: ISOVUE-300 61% 100ML VIAL As Ordered ONE (11:58)
[2023-02-09] MEDS ORDERED: ceFAZolin SOD 2 GM in IV 1 EA IV ONE (12:00)
[2023-02-09] MEDS ORDERED: ONDANSETRON 4MG 2ML VIAL IV PRN (13:05)
[2023-02-09] MEDS ORDERED: oxyCODONE 5MG TAB PO PRN (13:05)
[2023-02-09] MEDS ORDERED: fentaNYL 100 MCG/2 ML INJECTION IV PRN (13:05)
[2023-02-09] MEDS ORDERED: HYDROMORPHONE HCL 0.5 MG/ 0.5 ML SYRINGE IV PRN (13:05)
[2023-02-09] MEDS ORDERED: PERCOCET 5MG/325MG TAB PO PRN (13:40)
[2023-02-09 14:52] VITALS: BP 153/85; TEMP 98; O2SAT 98
[2023-02-09] MEDS ORDERED: OXYB5TAB10 PO (14:52)
== END 2023-02-09 14:52 | disposition home or self-care (01) ==
LOC: M SDC 09:59
PROVIDERS: ATTEND Urology
DX: N13.2 Hydronephrosis with renal and ureteral calculous obstruction (principal); Z88.0 Allergy status to penicillin; Z79.899 Other long term (current) drug therapy
CPT/HCPCS: 52332; 74420; 81025; C1769; C2617; J0690; J1100; J2250; J2405; J2765; J3010; Q9967

== ENCOUNTER → 2023-02-16 | Outpatient (CLI) | payer OTHER ==
[~2023-02-16] MED LIST changes: +FUROSEMIDE 20MG/2ML VIAL As Ordered ONE; +OXYB5TAB10 PO; -UNRESOLVED CLARIFICATION ENTRY XX SCH
== END ==
LOC: M RAD 14:07
PROVIDERS: ATTEND Urology
DX: N13.5 Crossing vessel and stricture of ureter without hydronephrosis (principal)
CPT/HCPCS: 78708; A9562; J1940